=== PATIENT | male | born 1945 | race Caucasian/White ===

== ENCOUNTER 2019-05-06 01:03 | Day surgery (SDC) | payer MEDICARE, SELFPAY ==
[2019-05-03 14:32] VITALS: BMI 24.9
[2019-05-06] VITALS (7 sets, daily range): BP systolic 140–148; BP diastolic 68–89; PULSE 66–77; RESP 12–16; TEMP 36.3–36.4; O2SAT 94–100
--- NOTE | ~2019-05-06 | XR_ITS ---
EXAMINATION: XR retrograde pyelogram BI INDICATION: History of bladder cancer TECHNIQUE: 87 intraoperative fluoroscopic images are submitted for review. Fluoroscopy exposure time was 20.3 minutes. The DAP for this procedure was 0.4746 mGycm2. COMPARISON: None available FINDINGS: Fluoroscopic images demonstrate retrograde opacification of normal caliber ureters. There i s no hydronephrosis. The bowel gas pattern is normal. IMPRESSION: 1. No hydroureteronephrosis. Please refer to procedure note for full details. Reviewed, dictated and finalized at location B.
--- NOTE | 2019-05-06 07:25 | WPDHPUPDATE1 ---
History and Physical Update Update Date/Time: 05/06/19 07:25 History and Physical has been reviewed, including an updated exam of the patient. There are NO changes in the patient's condition. Risks, benefits, and alternatives have been discussed and questions answered. Patient agrees to proceed with procedure.
--- NOTE | 2019-05-06 10:57 | ECG_ITS ---
Measurements Intervals [place] Rate: 63 P: 78 FL: 163 QRS: 80 QRSD: 107 T: 48 QT: 400 QTc: 413 Interpretive Statements SINUS RHYTHM MINIMAL Q WAVES- INFERIOR LEADS BORDERLINE ECG Electronically Signed On 05-06-2019 13:37:09 CDT by Nav Ashraf D.O.
[2019-05-06] MEDS: LACTATED RINGERS 1,000 ML 30 ML IV CONT ×2 (11:35→14:28)
--- NOTE | 2019-05-06 12:16 | P.PNAN_ITS ---
Anes - Initial Pre Proc Eval Procedure: Operation Date: 05/06/19 13:00 Proposed Procedures p Cystoscopy, Bilateral Ureteroscopy, Bilateral Retrograde Pyelogram - Getachew Garcia MD s Transurethral Resection Bladder Tumor - Getachew Garcia MD Date/Time: 05/06/19 12:16 Surgeon: Getachew Garcia MD Pre Op Diagnosis: bladder cancer Patient Data Age: 73 Gender: M Height: 5 ft 10.5 in Weight: 83.5 kg Last Vital Signs Temp 36.4 C 05/06/19 11:48 Pulse 73 05/06/19 11:48 Resp 16 05/06/19 11:48 BP 148/87 H 05/06/19 11:48 Pulse Ox 97 05/06/19 11:48 Allergies Allergy/AdvReac Type Severity Reaction Status Date / Time No Known Allergies Allergy Verified 05/06/19 11:20 Home Medications Medication Instructions Recorded Confirmed Type No Home Medications 05/03/19 05/06/19 History Patient hx anesthesia problems: none Family hx anesthesia problems: none [facility] Past Medical History Medical History (Updated 05/06/19 @ 12:16 by Chon Phillip MD) Bladder cancer Chronic lung disease Family History Family History Other Family history of malignant neoplasm Social History Social History Smoking status: Current every day smoker Alcohol intake: current Anes - Eval Final PreProcedure Day of Procedure 05/06/19 12:16 Patient weight: normal Heart: regular rate and rhythm Lungs: clear to auscultation Airway: Mallampati scale class II Neurological: alert and oriented Last oral intake: >/= 8 hours ASA classification: III Emergent: no Anesthetic plan: proceed Anesthesia type and monitoring: general LMA and standard monitoring Informed Consent: The patient's anesthetic plan and its attendant risks and benefits were discussed with the patient/family/POA. Questions were solicited and answers provided to the satisfaction of the patient/family/POA.
[2019-05-06] MEDS: ceFAZolin 2 GM/D5W 50 ML 2 GM/50 ML BAG IVPB (13:15)
--- NOTE | 2019-05-06 14:38 | SUR.PHASEI ---
1435- PERERA CATHETER DISCONTINUED ORDERED BY DR. ALMENDAREZ.
--- NOTE | 2019-05-06 14:53 | PM.PROC ---
Procedure Note - Detailed Date of procedure: 05/06/19 Pre-op diagnosis: bladder cancer Post-op diagnosis: same Procedure performed: 1. Cystoscopy, bilateral RPG. 2. TURBT (medium, 3cm). Description of procedure: The patient is brought to the operative suite where he is prepped and draped in a routine sterile fashion while in the dorsal lithotomy position. 2% lidocaine jelly was introduced in the urethra and allowed to stand for an appropriate period of time. General LMA anesthesia was administered by the anesthesia department. Cystoscopy was undertaken with a 21 F rigid cystoscope. The bladder neck and urethra were endoscopically normal. There were no urethral strictures. The prostatic urethral estimated length was 3.0cm. There was moderate obstruction of the prostatic urethra with a small median lobe. The bladder Showed one, 3cm papillary bladder tumor in the posterior bladder wall He had a single orthoptic ureteral orifice bilaterally. There was clear efflux from each ureteral orifice. An 8F cone-tipped catheter was used to obtain bilateral retrograde pyelogram. There was no hydronephrosis, obstruction, filling defects, stones or other identifiable pathology in the ureter or collecting system bilaterally. Using a 24 F resectoscope the bladder tumor was resected in its entirety with an attempt made to include detrusor muscle for for pathological evaluation of invasion. The base and periphery of the resected site were cauterized with a roller ball electrode. This was done with care to avoid injury to the ureteral orifices. The contrast drained promptly bilaterally. At this point the cystoscope was removed. Anesthesia: GLMA Surgeon: Getachew Garcia MD Estimated blood loss (mL): 0 Drains: No Packing: No Pathology: yes Complications: No immediate complications Condition: stable Disposition: PACU
== END 2019-05-06 15:41 | disposition home or self-care (01) ==
PROVIDERS: PCP Family Medicine Adolescent Medicine; Visit Provider Urology
PROC: (CPT 52352; principal; 2019-05-06 13:00)
PROC: 0TBB8ZZ Excision of Bladder, Via Natural or Artificial Opening Endoscopic (ICD-10-PCS; CPT 52235; 2019-05-06 13:00)
DX: C67.4 Malignant neoplasm of posterior wall of bladder (principal); J98.4 Other disorders of lung; F17.210 Nicotine dependence, cigarettes, uncomplicated
CPT/HCPCS: 52235; 74420; 88305; 88307; 93005; C1758; C1769; J0690; J1100; J2405; J2704; J3010; J7120; Q9966

== ENCOUNTER 2020-04-19 13:16 | Outpatient (CLI) | payer MEDICARE, SELFPAY ==
--- NOTE | ~2020-04-19 | CT_ITS ---
EXAMINATION: CT chest abdomen pelvis w con DATE: 04/19/2020 18:30 GAS MAIN FITTER HELPER INDICATION: Epigastric pain, bloating, diarrhea and follow-up lung nodule TECHNIQUE: Computed tomography (CT) of the chest, abdomen, and pelvis was performed with 100 cc Omnip aque 350 intravenous contrast. The dose-length product was 828.47 mGy-cm. Automated exposure control and iterative reconstruction technique were employed. COMPARISON: Pet/CT dated 08/06/[address] chest dated 07/27/2018 FINDINGS: CHEST CT: Heart size normal. No thoracic lymphadenopathy. No significant pleural or pericardial effusion. There is a fat-containing left Bochdalek hernia. Mild atherosclerosis. There is an enlarging mass in the r ight lower lobe medially measuring 1.3 x 1.2 x 0.9 cm compared with 8 x 6 x 10 mm on prior examinatio n. There is a calcified granuloma of the left upper lobe. There are calcified left hilar lymph nodes, consistent with chronic granulomatous disease. No focal airspace disease. There is emphysema. ABDOMEN/PELVIS CT: No significant vascular abnormality. No lymphadenopathy. There are nonobstructing bilateral renal sto ritesh. No hydronephrosis. There are bladder stones. Diverticulosis without evidence for diverticulitis. Gallbladder is present. No free air or free fluid. The bladder wall is thickened with mild perivesic al fatty infiltration. There is a left inguinal hernia containing fat. Moderate lumbar spondylosis. M oderate degenerative changes of the hips. Prostate gland is enlarged. IMPRESSION: 1. Enlarging right lower lobe nodule measuring 1.3 cm maximum dimension compared with 1 cm on prior e xamination, suspicious for low-grade neoplasm. Repeat follow-up pet/CT examination recommended. 2: Emphysema. 3: Nonobstructing bilateral renal stones. Bladder stones. 4: Bladder wall thickening with mild perivesical fatty infiltration, suspicious for cystitis versus s equela of outlet obstruction. Reviewed, dictated and finalized at location A. MAIN FITTER HELPER IMPRESSION: 1. Enlarging right lower lobe nodule measuring 1.3 cm maximum dimension compare d with 1 cm on prior examination, suspicious for low-grade neoplasm. Repeat fol low-up pet/CT examination recommended. 2: Emphysema. 3: Nonobstructing bilateral renal stones. Bladder stones. 4: Bladder wall thickening with mild perivesical fatty infiltration, suspicious for cystitis versus sequela of outlet obstruction.
[2020-04-19 13:40] LABS: Estimated Glomerular Filt Rate > 60
== END 2020-04-19 13:17 | disposition home or self-care (01) ==
LOC: ANHIMG 13:18
PROVIDERS: PCP Family Medicine Adolescent Medicine; Visit Provider Physician Assistant
DX: R10.13 Epigastric pain (principal); R19.7 Diarrhea, unspecified; R14.0 Abdominal distension (gaseous); J43.9 Emphysema, unspecified; N20.0 Calculus of kidney
CPT/HCPCS: 71260; 74177; Q9967

== ENCOUNTER 2021-03-23 16:48 | Emergency (ER) | payer MEDICARE, SELFPAY ==
--- NOTE | ~2021-03-23 | CT_ITS ---
EXAMINATION: CT brain wo con DATE: 03/23/2021 17:34 INDICATION: Head injury. TECHNIQUE: Computed tomography (CT) of the head was performed without intravenous contrast. The mA wa s adjusted according to patient size. Iterative reconstruction technique was employed. The dose-lengt h product was 605.33 mGy-cm. COMPARISON: None FINDINGS: There is no intracranial hemorrhage, acute infarction, or abnormal intracranial mass lesion . There are scattered areas of low attenuation in the cerebral white matter, which is within normal l imits for the patient's age. The ventricles are normal in size. The mastoid air cells are normal. The re are likely changes of ocular lens replacement surgeries. There are left zygomaticomaxillary comple x fractures. There is a fracture of medial wall of left orbit. IMPRESSION: 1. Normal aging brain. 2. Fractures involving the left zygomaticomaxillary complex and medial left orbital wall. Reviewed, dictated and finalized at location E. CTOR BLOOD BANK IMPRESSION: 1. Normal aging brain. 2. Fractures involving the left zygomaticomaxillary complex and medial left orb ital wall.
--- NOTE | ~2021-03-23 | CT_ITS ---
EXAMINATION: CT orbit BI wo con DATE: 03/23/2021 17:35 INDICATION: Left eye trauma. TECHNIQUE: Computed tomography (CT) of the orbits was performed without intravenous contrast. Automat ed exposure control and iterative reconstruction technique were employed. The dose-length product was 203.73 mGy-cm. COMPARISON: None FINDINGS: There are fractures involving the medial and lateral calabrese and floor of left orbit and medi al, anterior, and posterolateral calabrese of left maxillary sinus. There is a fracture of left zygomatic arch. There is inward displacement of the zygoma. There is a fracture of left nasal process of maxil la. There is mucosal thickening in the paranasal sinuses and hematoma in left maxillary sinus. There is gas in left orbit. IMPRESSION: 1. Left naso-orbitoethmoid and zygomaticomaxillary complex fractures. Reviewed, dictated and finalized at location E. OYMENT SUPERVISOR
[2021-03-23 16:52] VITALS: BP 160/100; PULSE 99; RESP 20; TEMP 36.5; O2SAT 97
--- NOTE | 2021-03-23 17:21 | ED.FALL ---
HPI - Fall General Chief Complaint: Fall Stated Complaint: fall, facial trauma Time Seen by Provider: 03/23/21 16:58 Source: patient Mode of arrival: ambulatory Limitations: no limitations History of Present Illness HPI Narrative: Patient woke up at 2 AM yesterday morning to go to the bathroom tripped and fell ,HIT the coffee table by left face, no loss of consciousness, no focal deficit patient does not take medicine. Patient reported that his left eye was swollen shut, with difficulty breathing from left nostril, with the ice pack, startED opening up theN noticed that he haVE double vision,. Patient denies any nausea, vomiting, fever, chills, chest pain, headache, neck pain or back pain Related Data Home Medications Medication Instructions Recorded Confirmed No Home Medications 03/23/21 03/23/21 Allergies Allergy/AdvReac Type Severity Reaction Status Date / Time No Known Allergies Allergy Verified 03/23/21 17:06 Review of Systems Review of Systems: CONSTITUTIONAL: Denies fever, chills, or sweats. EYES: Denies visual changes, redness, or discharge. ENT: Denies rhinorrhea, congestion, sore throat, or otalgia. CARDIOVASCULAR: Denies chest pain, palpitations, or edema. RESPIRATORY: Denies cough or dyspnea. GASTROINTESTINAL: Denies abdominal pain, nausea, vomiting, or diarrhea. GENITOURINARY: Denies dysuria or hematuria. SKIN: Denies rash or itching. MUSCULOSKELETAL: Denies back pain, joint pain, or myalgia. NEUROLOGIC: Denies headache, numbness, or weakness. PSYCHIATRIC: Denies anxiety or depression. PMFSH Past Medical History Medical History Bladder cancer Chronic lung disease Family History Family History Other Family history of malignant neoplasm Social History Social History Smoking status: Current every day smoker Alcohol intake: current Exam Narrative: General appearance: Well-developed, well-nourished Skin: Normal color Head: Normocephalic, nontraumatic Eyes: Subconjunctival hemorrhage ENT: Oropharynx normal, ears normal, nose normal Neck: Supple, nontender Chest and respiratory: Airway patent, no respiratory distress, no accessory muscle use Heart: Regular rate/rhythm Abdomen: Soft, nontender, no organomegaly, quiet bowel sounds Vascular: Normal peripheral pulses, normal capillary refill. Musculoskeletal: Normal range of motion, nontender back Neurologic: Alert and oriented ?3, SUGAR CONTROLLER is normal as tested, no gross motor deficit Eyes: Visual Person: abnormal by confrontation Alignment and Position: position normal Periorbital: periorbital findings abnormal (Ecchymosis of upper and lower eyelids) Eyelids: other (Ecchymosis upper and lower eyelids) Conjunctivae: conjunctival abnormality (Severe subconjunctival hemorrhage bulging outside eye opening, no active bl) Cornea: corneas normal Pupils: Equal, round and reactive pupils present and Pupils normal by confrontation EOM: EOMs intact bilaterally Direct Ophthalmoscopy: anterior chamber normal Course Course Emergency Course: Patient received a tetanus shot prior to transfer to [facility] Consultations Consultation #1: DR MOTA, molecular geneticist at [facility] who accepted patient transfer Date: 03/23/21 Time: 18:34 Consultation #2: DR CAMPOS, ED [facility] Date: 03/23/21 Time: 18:35 Vital Signs Vital signs: Vital Signs Temperature 36.5 C 03/23/21 16:52 Pulse Rate 99 03/23/21 16:52 Respiratory Rate 20 03/23/21 16:52 Blood Pressure 160/100 H 03/23/21 16:52 Pulse
[2021-03-23] MEDS: TETANUS,DIPHTHERIA,AC PERTUSSIS ADULT (0.5 ML) BOOSTRIX IM (18:15)
--- NOTE | 2021-03-23 18:35 | PC.NURSE ---
made contact with yo YAN to send out a truck to transfer pt to [facility]. Yo is en route now
[2021-03-23 18:49] VITALS: BP 151/98; PULSE 88; RESP 18; O2SAT 97
[2021-03-23 19:16] VITALS: BP 151/98; PULSE 88; RESP 18; O2SAT 97
--- NOTE | 2021-03-23 22:01 | PC.NURSE ---
[facility] here
== END 2021-03-23 22:10 | disposition short-term general hospital (02) ==
PROVIDERS: Emergency Provider Emergency Medicine; PCP Family Medicine Adolescent Medicine
DX: S02.40FA Zygomatic fracture, left side, initial encounter for closed fracture (principal); S02.832A Fracture of medial orbital wall, left side, initial encounter for closed fracture; W01.190A Fall on same level from slipping, tripping and stumbling with subsequent striking against furniture, initial encounter; J98.4 Other disorders of lung; Z85.51 Personal history of malignant neoplasm of bladder; F17.200 Nicotine dependence, unspecified, uncomplicated; Z23 Encounter for immunization
CPT/HCPCS: 70450; 70480; 90471; 90715; 99285

== ENCOUNTER 2021-11-23 13:40 | Outpatient (CLI) | payer MEDICARE, SELFPAY ==
--- NOTE | ~2021-11-23 | XR_ITS ---
EXAMINATION: XR abdomen/kub 1V DATE: 11/23/2021 14:13 INDICATION: Gross hematuria. TECHNIQUE: A supine view of the abdomen on 3 radiographs was obtained. COMPARISON: CT abdomen and pelvis 11/23/2021 FINDINGS: There are no dilated loops of bowel. The kidneys are obscured by bowel. There are vascular calcifications in left kidney. IMPRESSION: 1. No visible urolithiasis. Reviewed, dictated and finalized at location A. IMPRESSION: 1. No visible urolithiasis.
--- NOTE | ~2021-11-23 | CT_ITS ---
EXAMINATION: CT abdomen pelvis wo/w con DATE: 11/23/2021 14:40 INDICATION: Gross hematuria. TECHNIQUE: Computed tomography (CT) of the abdomen and pelvis was performed without and with intraven ous contrast using a total of 130 mL Omnipaque-350 intravenous contrast with a double-bolus technique for simultaneous opacification of the renal parenchyma and renal collecting system. Automated exposu re control and iterative reconstruction technique were employed. The dose-length product was 217.74 m Gy-cm. COMPARISON: CT abdomen and pelvis 04/19/2020, 05/12/13 FINDINGS: The visualized portions of the lung bases demonstrate emphysema and mild atelectasis. There is a 1.3 cm nodule in right lung lower lobe, increased from 1.1 cm on 04/19/2020. No pleural effusion. The hear t size is normal. There are coronary artery calcifications. No pericardial effusion. The liver, gallb ladder, spleen, pancreas, and adrenal glands are normal. There is a 3 mm stone in right kidney lower pole. There is a 3 mm stone in left kidney lower pole. Right ureter is well opacified and is normal. Left ureter is not well opacified in its middle third, but is normal. The prostate is mildly enlarged . There is diverticulosis of the colon without evidence of diverticulitis. The appendix is normal. Th ere are no dilated loops of bowel. There are no pathologically enlarged lymph nodes. There is no free intraperitoneal fluid. There is a left inguinal hernia containing nonobstructed small bowel. There i s severe lumbar spondylosis. IMPRESSION: 1. Small bilateral nonobstructing kidney stones. 2. 1.3 cm nodule in right lung lower lobe, increased from 1.1 cm on 04/19/2020 and 0.4 cm on 05/12/13. T he differential diagnosis includes low-grade primary bronchogenic carcinoma and hamartoma. 3. Emphysema. 4. Left inguinal hernia containing nonobstructed small bowel. Reviewed, dictated and finalized at location A. IMPRESSION: 1. Small bilateral nonobstructing kidney stones. 2. 1.3 cm nodule in right lung lower lobe, increased from 1.1 cm on 04/19/2020 a nd 0.4 cm on 05/12/13. The differential diagnosis includes low-grade primary bron chogenic carcinoma and hamartoma. 3. Emphysema. 4. Left inguinal hernia containing nonobstructed small bowel.
[2021-11-23 14:21] LABS: Estimated Glomerular Filt Rate > 60
== END 2021-11-23 13:41 | disposition home or self-care (01) ==
PROVIDERS: PCP Family Medicine Adolescent Medicine; Visit Provider Urology
DX: R31.0 Gross hematuria (principal); N20.0 Calculus of kidney; R91.1 Solitary pulmonary nodule; J43.9 Emphysema, unspecified; K40.90 Unilateral inguinal hernia, without obstruction or gangrene, not specified as recurrent
CPT/HCPCS: 74018; 74178; Q9967

== ENCOUNTER 2021-12-20 09:03 | Outpatient (CLI) | payer MEDICARE, SELFPAY ==
--- NOTE | ~2021-12-20 | PE_ITS ---
EXAMINATION: PET skull to mid thigh DATE: 12/20/2021 11:00 INDICATION: Slowly enlarging right lower lobe pulmonary nodule TECHNIQUE: Blood glucose level was 90 mg/dL. 11.345 mCi of 18-fluorodeoxyglucose (18-FDG) was adminis tered i.v. Low dose computed tomography (CT) images were acquired from the base of the brain to the p roximal thighs for attenuation correction and anatomic localization. Positron emission tomography (PE T) images were acquired in the same distribution beginning 66 minutes after injection. Images includi ng fused PET/CT images were reconstructed in axial, coronal, and sagittal planes. Automated exposure control technique was employed. The dose-length product was 476.52mGy-cm. COMPARISON: CT abdomen pelvis dated 11/23/[address] chest dated 04/19/2020 FINDINGS: Head/neck: There is symmetric increased activity in the oral cavity, palatine tonsils, submandibular glands, lar yngeal muscles and ocular muscles without CT correlate, likely physiologic. No pathologically enlarge d cervical lymphadenopathy or suspicious foci of increased FDG uptake in the visualized head or neck. Chest: Mild emphysema. No FDG uptake associated with the 1.2 cm right lower lobe nodule of concern which is located at the azygos esophageal recess. Small calcified nodules in the left upper lobe and calcified left hilar lymph nodes consistent with old granulomatous disease. No other new, enlarging or FDG ritu d lymph nodes. Heart size is normal. No pericardial or pleural effusion. Thoracic aorta is normal in caliber. No pathologically enlarged or abnormal FDG avid thoracic lymphadenopathy. Abdomen/pelvis/proximal thighs: Physiologic renal accumulation and excretion of FDG activity in the kidneys, bladder and along portio ns of ureters. There is wall thickening of the bladder with small amount of intraluminal gas in the n ondependent bladder. Prostatomegaly. Normal degree and heterogenous pattern of increased uptake throu ghout the liver without radiologic correlate or dominant FDG avid lesion. The gallbladder, pancreas, spleen and bilateral adrenal glands are normal. There are numerous scattered colonic diverticula with a sigmoid predominance. There is no adjacent inflammatory change to suggest diverticulitis. Mild to moderate uptake scattered throughout the bowels without radiologic correlate, also likely physiologi c. Short segment of nonobstructed small bowel extends minimally into the orifice of a small left ingu inal hernia. No other abnormal foci of increased FDG uptake or pathologically enlarged lymphadenopath y in the abdomen, pelvis or proximal thighs. Musculoskeletal: Severe cervical and lumbar and moderate thoracic spondylosis. Focal asymmetric mild uptake associated with moderate osteoarthritis at the bilateral acromioclavicular joints. No suspicious lytic, blastic or FDG avid bone lesions. IMPRESSION: 1. No evident FDG uptake associated with the 12 mm right lower lobe nodule. While reassuring this north s not absolutely exclude a slowly growing malignancy. 2. No other lesions suspicious for primary malignancy or metastatic disease in the neck, chest, abdom en or pelvis. 3. Wall thickening the bladder with small focus of intraluminal gas. This could be due to cystitis or sequela of chronic outlet obstruction related to the enlarged prostate with gas secondary to recent Vences catheterization. Correlate with clinical history and/or urinalysis. 4. Marked diverticulosis. 5. Short segment of nonobstructed small bowel extends minimally into a small left inguinal hernia. Reviewed, dictated and finalized at location A. OMER SERVICE AGENT IMPRESSION: 1. No evident FDG uptake associated with the 12 mm right lower lobe nodule. Whfilomena whitlock reassuring this does not absolutely exclude a
[2021-12-20 09:21] LABS: Glucose Point of Care 90 mg/dl (65-105)
== END 2021-12-20 09:04 | disposition home or self-care (01) ==
LOC: ANHIMG 09:05
PROVIDERS: PCP Family Medicine Adolescent Medicine; Visit Provider Family Medicine Adolescent Medicine
DX: R91.1 Solitary pulmonary nodule (principal); K57.30 Diverticulosis of large intestine without perforation or abscess without bleeding
CPT/HCPCS: 78815; A9552

== ENCOUNTER 2022-01-10 11:23 | Outpatient (CLI) | payer MEDICARE, SELFPAY ==
--- NOTE | 2022-01-10 11:40 | ECG_ITS ---
Measurements Intervals [place] Rate: 92 P: 84 [place]: 161 QRS: 84 QRSD: 103 T: 22 QT: 343 QTc: 426 Interpretive Statements SINUS RHYTHM POSSIBLE LEFT ATRIAL ENLARGEMENT [-0.1mV P WAVE IN V1/V2] NONSPECIFIC ST AND T-WAVE ABNORMALITY COMPARED TO ECG 05/06/2019 11:50:19 NO SIGNIFICANT CHANGES Electronically Signed On 01-10-2022 11:57:54 TRIP MOTOR OPERATOR by Otis Silva M.D.
== END 2022-01-10 11:24 | disposition home or self-care (01) ==
PROVIDERS: PCP Family Medicine Adolescent Medicine; Visit Provider Urology
DX: F17.200 Nicotine dependence, unspecified, uncomplicated (principal); Z01.818 Encounter for other preprocedural examination
CPT/HCPCS: 93005

== ENCOUNTER 2022-01-17 01:03 | Day surgery (SDC) | payer MEDICARE, SELFPAY ==
--- NOTE | 2022-01-07 15:07 | PC.NURSE ---
Report to the Outpatient Waiting Room, entrance under the green pavilion located off [address], at time _1000 on date __01/17/22 . Planned Procedure Time: _1200 . Time changes happen often and if your time is changed the preop area will call you the afternoon before. - You and your visitor will be asked to self-screen and do not enter if you have any COVID symptoms. - Only one visitor is requested with a max of two and NO children visitors are allowed at this time. - The patient visitor may be requested to leave or wait in car when not with patient due to distancing restrictions. - A mask is optional within the hospital. Patients may have clear liquids (water, carbonated beverages, clear teas, apple juice) until 3 hours prior to surgery with a maximum of 20 ounces. - No food from midnight until time of surgery - Infants may have breast milk until 4 hours before surgery, formula 6 hours prior to surgery. - Children will be allowed to drink immediately following surgery. If applicable, please bring a bottle or sippy cup to assist with drinking. Juice, water, soda, and popsicles are readily available. For infants on formula, please bring formula the day of surgery. Pacifiers are allowed. Take the following medications with a SIP of water the morning of surgery: ____NONE Medications to discontinue per physician PRESERVISION 3 DAYS PRE OP Date to take last dose___01/13/22 Please no make-up, nail portuguese, hairspray, perfume, deodorant, or body powder the day of surgery. No jewelry (including any body piercings) or valuables the day of surgery, leave them at home. Please take a shower or bath the night before, or the morning of, surgery with an antibacterial soap. Wear comfortable, loose fitting clothing. Children are encouraged to wear pajamas. - Jewelry must be removed prior to entering the operating room. Rings and piercings that are not removed may be cut off. - The hospital will not accept responsibility for valuables. - Please leave all valuables, including medications, at home the day of surgery. If you are going home after surgery, a licensed carrier driver must drive you home. - NO public transportation without another adult if you receive anesthesia. - We recommend that an adult stay with you for 24 hours following discharge. - We also recommend that you do not drive, make important decision, drink alcoholic beverages, or take any drugs that were not prescribed by your health care provider for at least 24 hours after your discharge time. For Pediatric surgeries, we recommend two adults accompany the child home. Follow any additional instructions given to you from your surgeon. If you or anyone in your household have experienced Covid symptoms in the past week, please notify your surgeon or the nurse liaison at the phone number below for possible testing. and asked if any additional questions and then verbalized understanding. Patient advised to call surgeon office or pre surgery nurse liaison [phone] if any additional questions.
[2022-01-07 15:14] VITALS: BMI 23.7
--- NOTE | 2022-01-14 07:52 | PM.HPGS ---
History of Present Illness History of Present Illness Consent: Risks, benefits, and alternatives have been discussed and questions answered. Patient agrees to proceed with procedure. 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 After discussion we decided to proceed with transurethral resection of this lesion followed by gemcitabine installation into the bladder. Review of Systems Review of Systems: All systems reviewed & are unremarkable except as noted in HPI and below PMFSH Past Medical History Medical History Bladder cancer Chronic lung disease History of malignant melanoma 1986 Surgical History Surgical History History of bladder surgery TURB 06/17 & 04/19 & 11/23 & 04/25 & 02/26 & 03/30 & 04/29 Family History Family History Mother Bladder cancer Family history of malignant neoplasm Father Malignant neoplasm of prostate Social History Social History Smoking packs per day: 1 Smoking cigarettes per day: 20.0 Years smoked: 55 Smoking pack-years: 55.00 Smoking status: Current every day smoker Tobacco type: cigarettes Second hand tobacco smoke exposure: No Additional smoking assessment comments: SINCE 2017 NOW SMOKES 6-7 CIGARETTES PER DAY Alcohol intake: current Drinks per week: 7 Substance use: never Substance use type: does not use Gender identity (if verbalized by the patient): Male Sexual Orientation (if Verbalized by the Patient): Straight or Heterosexual Spiritual care concerns: No Meds Home Medications and Allergies Home Medications Medication Instructions Recorded Confirmed Type vit C 250 mg-vit E 90 mg-zinc 40 1 tablet PO BID 01/07/22 01/07/22 History mg-copper 1 [id number] capsule (PreserVision AREDS-2) Allergies Allergy/AdvReac Type Severity Reaction Status Date / Time No Known Allergies Allergy Verified 01/07/22 14:55 Exam Const: General: no acute distress Resp: Effort & Inspection: normal respiratory effort GI: Inspection: non-distended GI Palp: No abdominal tenderness and No Guarding due to palpation present (GI) Auscultation: normal bowel sounds
--- NOTE | 2022-01-16 11:37 | P.PNAN_ITS ---
Anes - Initial Pre Proc Eval Procedure: Operation Date: 01/17/22 11:30 Proposed Procedures p Trans Urethral Resection Bladder Tumor with Gemcitabine Instillation - Getachew Garcia MD Date/Time: 01/16/22 11:37 Surgeon: Getachew Garcia MD Pre Op Diagnosis: gross hematuria, bladder CA Patient Data Age: 76 Gender: M Height: 1.8 m Weight: 77.15 kg Allergies Allergy/AdvReac Type Severity Reaction Status Date / Time No Known Allergies Allergy Verified 01/17/22 10:14 Home Medications Medication Instructions Recorded Confirmed Type vit C 250 mg-vit E 90 mg-zinc 40 1 tablet PO BID 01/07/22 01/17/22 History mg-copper 1 [id number] capsule (PreserVision AREDS-2) Patient hx anesthesia problems: none Family hx anesthesia problems: none Results Review: All pre-operative results and documents have been reviewed as part of the pre- operative evaluation. [facility] Past Medical History Medical History (Updated 01/16/22 @ 11:38 by Colton Ascencio DO) Bladder cancer Chronic lung disease benign lung nodule, frequent pneumonia History of malignant melanoma 1986 Surgical History Surgical History History of bladder surgery TURB 06/17 & 04/19 & 11/23 & 04/25 & 02/26 & 03/30 & 04/29 Family History Family History Mother Bladder cancer Family history of malignant neoplasm Father Malignant neoplasm of prostate Social History Social History Smoking packs per day: 1 Smoking cigarettes per day: 20.0 Years smoked: 55 Smoking pack-years: 55.00 Smoking status: Current every day smoker Tobacco type: cigarettes Second hand tobacco smoke exposure: No Additional smoking assessment comments: SINCE 2017 NOW SMOKES 6-7 CIGARETTES PER DAY Alcohol intake: current Drinks per week: 7 Substance use: never Substance use type: does not use Living arrangements: with family Gender identity (if verbalized by the patient): Male Sexual Orientation (if Verbalized by the Patient): Straight or Heterosexual Spiritual care concerns: No Anes - Eval Final PreProcedure Day of Procedure 01/16/22 11:37 Patient weight: normal Heart: regular rate and rhythm Lungs: clear to auscultation and normal air movement Airway: Mallampati scale class II Neurological: alert and oriented Last oral intake: >/= 8 hours ASA classification: III Emergent: no Anesthetic plan: proceed Anesthesia type and monitoring: general LMA and standard monitoring Results Review: All pre-operative results and documents have been reviewed as part of the pre- operative evaluation. Informed Consent: The patient's anesthetic plan and its attendant risks and benefits were discussed with the patient/family/POA. Questions were solicited and answers provided to the satisfaction of the patient/family/POA.
[2022-01-17] VITALS (11 sets, daily range): BP systolic 94–134; BP diastolic 53–79; PULSE 65–78; RESP 10–18; TEMP 36.5–36.8; O2SAT 93–100
--- NOTE | 2022-01-17 06:47 | WPDHPUPDATE1 ---
History and Physical Update Update Date/Time: 01/17/22 06:47 History and Physical has been reviewed, including an updated exam of the patient. There are NO changes in the patient's condition. Risks, benefits, and alternatives have been discussed and questions answered. Patient agrees to proceed with procedure.
[2022-01-17] MEDS: LACTATED RINGERS 1,000 ML 30 ML IV CONT (10:23)
[2022-01-17] MEDS: ceFAZolin 2 GM/D5W 50 ML 2 GM/50 ML BAG IVPB (11:07)
[2022-01-17] MEDS: LIDOCAINE HCL 2% GEL UROJET 10 ML PKG MUCOUS MEM (11:30)
--- NOTE | 2022-01-17 11:39 | P.OP_ITS ---
Procedure Note - Detailed Date of Procedure 01/17/22 Pre-op Diagnosis gross hematuria, urothelial carcinoma the prostatic urethra Post-op Diagnosis Same Procedure Performed TURBT ( medium, 2-3 cm) Random bladder biopsy Surgeon Getachew Garcia MD Anesthesia General Description of Procedure Patient brought the op suite where he has prepped draped in routine sterile fashion while in dorsal lithotomy position after the uneventful induction of a general LMA anesthetic. Cystoscopy is undertaken with a 24F resectoscope. He has is papillary and plan in the posterior prostatic urethra, proximally midway between the bladder neck and the verumontanum. Lateral lobes and anterior portion of the prostate appeared endoscopically normal. This section is excise from the bladder neck to the verumontanum and the base is cauterized with a rollerball. The bladder has no carmelo neoplasm. There was a very faint sug gestion of diffuse hyperemia so I did 1 random biopsy. That site is also cauterized. The ureteral orifices were identified and preserved throughout this. A 20 F urethral catheter was placed to drainage. Estimated Blood Loss 0 Drains Yes Packing No Pathology Yes Complications No immediate complications Condition Stable Disposition PACU
--- NOTE | 2022-01-17 11:43 | W.PM.PROC2 ---
Procedure Note - Detailed Date of Procedure 01/17/22 Pre-op Diagnosis gross hematuria, urothelial ca. bladder neck Post-op Diagnosis Same Procedure Performed Gemcitabine installation into bladder Surgeon Getachew Garcia MD Anesthesia None Description of Procedure With the patient in the supine position, a 16F Vences catheter is placed using sterile technique. Using a protective facemask, gown and double layer of gloves Gemcitabine 2gm in 100cc saline is administered through the catheter/into the bladder. The catheter is then plugged. Patient was instructed to lie supine x20min, then to roll both the left and right x20 min. each. Total dwell time will be 60 min., after which the bladder will be drained and catheter removed. Estimated Blood Loss 0 Drains No Packing No Pathology None sent Complications No immediate complications Condition Stable
[2022-01-17] MEDS: SODIUM CHLORIDE 0.9% IV 23.7 ML, GEMCITABINE HCL 1,000 MG BLADDER ×2 (11:50→11:51)
[2022-01-17] MEDS: fentaNYL CITRATE INJ (*CRX) 100 MCG/2 ML VIAL 25 MCG IV PUSH ×4 (12:15→12:48)
[2022-01-17] MEDS: oxyCODONE HCL (*CRX) 5 MG TAB IR PO (13:46)
== END 2022-01-17 14:26 | disposition home or self-care (01) ==
PROVIDERS: PCP Family Medicine Adolescent Medicine; Visit Provider Urology
PROC: 0TBB8ZZ Excision of Bladder, Via Natural or Artificial Opening Endoscopic (ICD-10-PCS; CPT 52235; principal; 2022-01-17 11:30)
DX: C67.8 Malignant neoplasm of overlapping sites of bladder (principal); N30.20 Other chronic cystitis without hematuria; R31.0 Gross hematuria; F17.210 Nicotine dependence, cigarettes, uncomplicated
CPT/HCPCS: 52235; 51720; 88305; A9270; J0690; J1100; J2370; J2405; J2704; J3010; J7120; J9201

== ENCOUNTER 2022-11-28 20:11 | Emergency (ER) | payer MEDICARE, SELFPAY ==
[2022-11-28 20:12] VITALS: BP 134/52; PULSE 131; RESP 16; TEMP 38.2; O2SAT 95
--- NOTE | 2022-11-28 21:16 | PC.NURSE ---
patient states that he has chosen to go to the hospital where his doctor is
== END 2022-11-28 21:28 | disposition left against medical advice (07) ==
PROVIDERS: PCP Family Medicine Adolescent Medicine
DX: R50.9 Fever, unspecified (principal)
CPT/HCPCS: 99199